=== PATIENT | male | born 1975 | race Caucasian/White ===

== ENCOUNTER 2017-01-21 11:39 | Emergency (ER) | payer MEDICAID | END 2017-01-21 12:30 | LOC: ED 11:39 | DX: Z76.0 Encounter for issue of repeat prescription (principal); I10 Essential (primary) hypertension; E11.9 Type 2 diabetes mellitus without complications; K21.9 Gastro-esophageal reflux disease without esophagitis | CPT/HCPCS: 99283 ==

== ENCOUNTER 2017-05-13 16:53 | Emergency (ER) | payer MEDICAID ==
[~2017-05-13] VITALS: Ht 177.8 cm; Wt 163.4 kg
[2017-05-13 16:57] VITALS: BP 166/101
[2017-05-13] MEDS ORDERED: METO50TA82 PO (17:20)
[2017-05-13] MEDS ORDERED: METF500T4 PO (17:20)
[2017-05-13] MEDS ORDERED: RANI150C PO (17:20)
== END 2017-05-13 17:24 | disposition home or self-care (01) ==
LOC: ED 17:10
DX: Z76.0 Encounter for issue of repeat prescription (principal); I10 Essential (primary) hypertension
CPT/HCPCS: 99283

== ENCOUNTER 2017-11-30 23:11 | Emergency (ER) | payer SELFPAY ==
[~2017-11-30] VITALS: Ht 175.3 cm; Wt 165.7 kg
[~2017-11-30 23:11] MED LIST: METF500T4 PO; METO50TA82 PO; RANI150C PO
[2017-11-30 23:13] VITALS: BP 162/98
== END 2017-11-30 23:48 | disposition home or self-care (01) ==
LOC: ED 23:20
DX: E11.9 Type 2 diabetes mellitus without complications (principal); I10 Essential (primary) hypertension; K21.9 Gastro-esophageal reflux disease without esophagitis; Z76.0 Encounter for issue of repeat prescription
CPT/HCPCS: 99283

== ENCOUNTER 2019-03-07 18:45 | Emergency (ER) | payer OTHER ==
[~2019-03-07] VITALS: Ht 177.8 cm; Wt 159.4 kg
[~2019-03-07 18:45] MED LIST changes: +METF500T17 PO; -METF500T4 PO
[2019-03-07 18:50] VITALS: BP 152/89
== END 2019-03-07 19:18 | disposition home or self-care (01) ==
LOC: ED 19:00
DX: I10 Essential (primary) hypertension (principal); Z76.0 Encounter for issue of repeat prescription; E11.9 Type 2 diabetes mellitus without complications
CPT/HCPCS: 99283